=== PATIENT | male | born 1985 | race Caucasian/White ===

== ENCOUNTER 2021-05-15 11:17 | Outpatient (REF) | payer BC, SELFPAY ==
[2021-05-15 12:21] LABS: Hematocrit 45.8 % (42.0-52.0); Mean Corpuscular HGB Conc 32.8 g/dl (31.0-36.0); Mean Corpuscular Hemoglobin 28.7 pg (27.0-33.0); Mean Corpuscular Volume 87.6 fL (80.0-98.0); Mean Platelet Volume 10.2 fL (9.4-12.4); Platelet Count 367 X10*3/uL (160-400); Red Blood Count 5.23 X10*6/uL (4.60-5.80); Red Cell Distribution Width 12.7 % (11.0-16.0); White Blood Count 7.2 X10*3/uL (4.8-10.8)
[2021-05-15 12:50] LABS: C Reactive Protein 0.18 mg/dL (< or = 0.50)
[2021-05-15 13:03] LABS: Erythrocyte Sedimentation Rate 2 MM/HR (0-15)
[2021-05-15 13:25] LABS: Rheumatoid Factor < 15.0 IU/mL (<15.0)
[2021-05-17 13:12] LABS: Anti Nuclear Antibody Screen NEGATIVE (NEGATIVE)
[2021-05-22 17:05] LABS: Angiotensin Converting Enzyme 32 U/L (9-67)
[2021-05-22 17:41] LABS: Treponema pallidum Ab FTA ABS Nonreactive (Nonreactive)
== END 2021-05-15 11:18 | disposition home or self-care (01) ==
LOC: HO.LAB 11:17
PROVIDERS: PCP Physician Assistant Medical; Visit Provider Ophthalmology
DX: H20.9 Unspecified iridocyclitis (principal)
CPT/HCPCS: 36415; 82164; 85027; 85652; 86038; 86039; 86140; 86431; 86780